=== PATIENT | male | born 1995 | race Caucasian/White ===

== ENCOUNTER 2018-04-19 16:44 | Observation (INO) | payer SELFPAY ==
[2018-04-19] MEDS ORDERED: Ondansetron 4 MG/2 ML SDV IVPUSH ONE (16:57)
[2018-04-19] MEDS ORDERED: Sodium Chloride 0.9% 1,000 ML IV ONE ×2 (16:57→17:14)
[2018-04-19] MEDS ORDERED: Sodium Chloride 0.9% 10 ML Syringe FLUSH PRN (17:01)
[2018-04-19] MEDS ORDERED: Sodium Chloride 0.9% 2.5 ML Syringe FLUSH PRN (17:01)
[2018-04-19] MEDS ORDERED: Prochlorperazine 10 MG/2 ML SDV IVPUSH ONE (17:13)
[2018-04-19] MEDS ORDERED: LORazepam 2 MG/ML SDV IVPUSH ONE (17:22)
--- NOTE | 2018-04-19 17:27 | EDM.PDOC ---
ED HPI GENERAL MEDICAL PROBLEM - General Chief Complaint: General Stated Complaint: VOMITING/STOMACH PAIN Time Seen by Provider: 04/19/18 17:10 Source of Information: Reports: Patient History Limitations: Reports: No Limitations - History of Present Illness INITIAL COMMENTS - FREE TEXT/NARRATIVE: HISTORY AND PHYSICAL: []22-year-old male presents after vomiting for the last 2 hours spent out working in the heat today History of Present Illness: []Patient comes in vomiting complaint of abdominal pain. He states that the pain as sharp and all over. He is unable to pinpoint one specific area which hurts the most. He states that he was at work today, forgot to eat and pack a lunch and did not drink much at work all day. He states that he thinks he got overheated which is what started vomiting. He has had too numerous of episodes of vomiting in order to keep track of how many times he vomited. He is unable to keep any fluids down at this time. He rates his pain a 10 out of 10. He also states he feels like he is cold and shivery. He states that he did have a few alcoholic beverages last night, but was not able to tell me how many drinks. He denies diarrhea, constipation, blood in the stool, blood in his vomit. He states that the only other time that he has had vomiting like this was when he had kidney stones about a year ago. Does admit to smoking weed in the past but does not smoke it on a regular basis He denies shortness of breath, cough, dyspnea, syncope chest pressure or pain. Review of Systems: As per history of present illness and below otherwise all systems reviewed and negative. Past medical history: As per history of present illness and as reviewed below otherwise noncontributory. Surgical history: As per history of present illness and as reviewed below otherwise noncontributory. Social history: No reported history of drug or alcohol abuse. Family history: As per history of present illness and as reviewed below otherwise noncontributory. Physical exam: Alert and oriented thin appearing male looking quite miserable, pale, vomiting numerous that is loud and retching quality. HEENT: Atraumatic, normocehpalic, pupils reactive, negative for conjunctival pallor or scleral icterus, mucous membranes moist, throat clear, neck supple, nontender, trachea midline. Lungs: Clear to auscultation, breath sounds equal bilaterally, chest non tender. Heart: S1S2, regular, negative for clicks, rubs, or JVD. Abdomen: Moderate to severe pain with light palpation and guarding. Soft, nondistended. Negative for masses or hepatossplenmegaly. Negative for costovertebral tenderness. Pelvis: Stable nontender. Genitourinary: Deferred. Rectal: Deferred Extremities: Atraumatic, negative for cords or calf pain. Neurovascular unremarkable. Neuro: Awake, alert, oriented. Cranial nerves II through XII unremarkable. Cerebellum unremarkable. Motor and sensory unremarkable throughout. Exam nonfocal. Have discussed with this patient to his CT scan negative for acute findings in his abdomen or pelvis is urine is positive for THC stressed the concerns with THC and cyclic vomiting. He has hypokalemia with potassium level II.8. Have recommended he stay for observation and rehydration Discussed report with the patient that his abdominal and pelvis CT scan was showing no Discussed he has low potassium is low Discussed case with Dr. Castaneda who has accepted this patient for referral to observation Diagnostics: []cbc, cmp, ekg, chest xray, abd xray h. pylori, cpk, UA , Urine drug screen Therapeutics: []IV fluids zofran, compazine Reglan Potassium chloride Impression: []Dehydration Hypokalemia Abdominal pain Cyclic vomiting Plan: []Per for observation Definitive disposition and diagnosis as appropriate pending reevaluation and review of above. Onset: Today, Sudden Duration: Hour(s): Location: Reports: Abdomen Quality: Reports: Throbbing Severity: Moderate Improves with: Reports: None Worsens with: Reports: None Associated Symptoms: Reports: Nausea/Vomiting abdominal pain Pain Score (Numeric/FACES): 10 - Related Data Allergies Allergy/AdvReac Type Severity Reaction Status Date / Time No Known Allergies Allergy Verified 04/19/18 17:02 Home Meds: Home Meds . [No Known Home Meds] 04/19/18 [History] Past Medical History Genitourinary History: Reports: Renal Calculus Social & Family History - Tobacco Use Smoking Status *Q: Former Smoker Years of Tobacco use: 4 Packs/Tins Daily: 0.5 Used Tobacco, but Quit: Yes Month/Year Tobacco Last Used: 2 months ago - Recreational Drug Use Recreational Drug Use: No ED ROS GENERAL - Review of Systems Review Of Systems: ROS reveals no pertinent complaints other than HPI. ED EXAM, GENERAL - Physical Exam Exam: See Below (see dictation) EKG INTERPRETATION EKG Date: 04/19/18 Rhythm: NSR Comparison: NA - No Prior EKG Course - Vital Signs Last Recorded V/S: Last Vital Signs Temp 35.8 C 04/19/18 17:03 Pulse 87 04/19/18 18:23 Resp 22 H 04/19/18 18:23 BP 123/83 04/19/18 18:23 Pulse Ox 98 04/19/18 18:23 - Orders/Labs/Meds Orders: Active Orders 24 hr Category Date Time Status Patient Status [ADT] Stat ADT 04/19/18 19:42 Ordered EKG Documentation Completion [RC] STAT Care 04/19/18 17:00 Active Abdomen Pelvis w Cont [CT] Stat Exams 04/19/18 17:31 Taken CULTURE URINE [RM] Stat Lab 04/19/18 18:50 Ordered DRUG SCREEN, URINE [URCHEM] Stat Lab 04/19/18 18:50 Ordered UA W/MICROSCOPIC [URIN] Stat Lab 04/19/18 18:50 Ordered NS + KCl 20mEq/L [Normal Saline with 20 mEq KCl] 1,000 Med 04/19/18 17:45 Active ml IV ASDIRECTED Sodium Chloride 0.9% [Saline Flush] Med 04/19/18 17:01 Active 10 ml FLUSH ASDIRECTED PRN Sodium Chloride 0.9% [Saline Flush] Med 04/19/18 17:01 Active 2.5 ml FLUSH ASDIRECTED PRN Saline Lock Insert [OM.PC] Stat Oth 04/19/18 17:00 Ordered Medication Orders Potassium Chloride/Sodium Chloride (Normal Saline With 20 Meq Kcl) 1,000 mls @ 150 mls/hr IV ASDIRECTED SHAWNA Last Admin: 04/19/18 17:49 Dose: 150 mls/hr Sodium Chloride (Saline Flush) 10 ml FLUSH ASDIRECTED PRN PRN Reason: Keep Vein Open Last Admin: 04/19/18 17:03 Dose: 10 ml Sodium Chloride (Saline Flush) 2.5 ml FLUSH ASDIRECTED PRN PRN Reason: Keep Vein Open Last Admin: 04/19/18 17:03 Dose: 2.5 ml Labs: Laboratory Tests 04/19/18 04/19/18 04/19/18 Range/Units 16:15 16:15 16:15 WBC 16.73 H (4.0-11.0) K/uL RBC 5.21 (4.50-5.90) M/uL Hgb 15.7 (13.0-17.0) g/dL Hct 44.3 (38.0-50.0) % MCV 85.0 (80.0-98.0) fL MCH 30.1 (27.0-32.0) pg MCHC 35.4 (31.0-37.0) g/dL RDW Std Deviation 39.7 (28.0-62.0) fl RDW Coeff of Eric 13 (11.0-15.0) % Plt Count 326 (150-400) K/uL MPV 11.60 (7.40-12.00) fL Neut % (Auto) 69.1 (48.0-80.0) % Lymph % (Auto) 21.4 (16.0-40.0) % [place] % (Auto) 9.0 (0.0-15.0) % Eos % (Auto) 0.1 (0.0-7.0) % Baso % (Auto) 0.4 (0.0-1.5) % Neut # (Auto) 11.6 H (1.4-5.7) K/uL Lymph # (Auto) 3.6 H (0.6-2.4) K/uL [place]ner # (Auto) 1.5 H (0.0-0.8) K/uL Eos # (Auto) 0.0 (0.0-0.7) K/uL Baso # (Auto) 0.1 (0.0-0.1) K/uL Nucleated RBC % 0.0 /100WBC Nucleated RBCs # 0 K/uL Sodium 140 (136-148) mmol/L Potassium 2.8 L (3.5-5.1) mmol/L Chloride 101 (98-107) mmol/L Carbon Dioxide 25.8 (21.0-32.0) mmol/L BUN 18 (7.0-18.0) mg/dL Creatinine 1.2 (0.8-1.3) mg/dL Est Cr Clr Drug Dosing 103.53 mL/min Estimated GFR (MDRD) > 60.0 ml/min Glucose 111 H (74-106) mg/dL Calcium 10.1 (8.5-10.1) mg/dL Total Bilirubin 0.9 (0.2-1.0) mg/dL AST 26 (15-37) IU/L ALT 30 (14-63) IU/L Alkaline Phosphatase 104 (46-116) U/L Creatine Kinase (26-308) U/L Total Protein 9.1 H (6.4-8.2) g/dL Albumin 5.1 H (3.4-5.0) g/dL Globulin 4.0 H (2.0-3.5) g/dL Albumin/Globulin Ratio 1.3 (1.3-2.8) Amylase 48 (25-115) U/L Urine Color Urine Appearance Urine pH (5.0-8.0) Ur Specific [place] (1.001-1.035) Urine Protein (NEGATIVE) mg/dL Urine Glucose (UA) (NEGATIVE) mg/dL Urine Ketones (NEGATIVE) mg/dL Urine Occult Blood (NEGATIVE) Urine Nitrite (NEGATIVE) Urine Bilirubin (NEGATIVE) Urine Urobilinogen (<2.0) EU/dL Ur Leukocyte Esterase (NEGATIVE) Urine RBC (0-2/HPF) Urine WBC (0-5/HPF) Ur Epithelial Cells (NONE-FEW) Calcium Oxalate Crystal (NEGATIVE) Urine Bacteria (NEGATIVE) Urine Mucus (NONE-MOD) Urine Opiates Screen (NEGATIVE) Ur Oxycodone Screen (NEGATIVE) Urine Methadone Screen (NEGATIVE) Ur Barbiturates Screen (NEGATIVE) Ur Phencyclidine Scrn (NEGATIVE) Ur Amphetamine Screen (NEGATIVE) U Methamphetamines Scrn (NEGATIVE) U Benzodiazepines Scrn (NEGATIVE) U Cocaine Metab Screen (NEGATIVE) U Marijuana (THC) Screen (NEGATIVE) H. pylori IgG Antibody NEGATIVE (NEG) 04/19/18 04/19/18 04/19/18 Range/Units 17:10 18:50 18:50 WBC (4.0-11.0) K/uL RBC (4.50-5.90) M/uL Hgb (13.0-17.0) g/dL Hct (38.0-50.0) % MCV (80.0-98.0) fL MCH (27.0-32.0) pg MCHC (31.0-37.0) g/dL RDW Std Deviation (28.0-62.0) fl RDW Coeff of Eric (11.0-15.0) % Plt Count (150-400) K/uL MPV (7.40-12.00) fL Neut % (Auto) (48.0-80.0) % Lymph % (Auto) (16.0-40.0) % [place] % (Auto) (0.0-15.0) % Eos % (Auto) (0.0-7.0) % Baso % (Auto) (0.0-1.5) % Neut # (Auto) (1.4-5.7) K/uL Lymph # (Auto) (0.6-2.4) K/uL [place] # (Auto) (0.0-0.8) K/uL Eos # (Auto) (0.0-0.7) K/uL Baso # (Auto) (0.0-0.1) K/uL Nucleated RBC % /100WBC Nucleated RBCs # K/uL Sodium (136-148) mmol/L Potassium (3.5-5.1) mmol/L Chloride (98-107) mmol/L Carbon Dioxide (21.0-32.0) mmol/L BUN (7.0-18.0) mg/dL Creatinine (0.8-1.3) mg/dL Est Cr Clr Drug Dosing mL/min Estimated GFR (MDRD) ml/min Glucose (74-106) mg/dL Calcium (8.5-10.1) mg/dL Total Bilirubin (0.2-1.0) mg/dL AST (15-37) IU/L ALT (14-63) IU/L Alkaline Phosphatase (46-116) U/L Creatine Kinase 272 (26-308) U/L Total Protein (6.4-8.2) g/dL Albumin (3.4-5.0) g/dL Globulin (2.0-3.5) g/dL Albumin/Globulin Ratio (1.3-2.8) Amylase (25-115) U/L Urine Color DARK YELLOW Urine Appearance CLEAR Urine pH 5.5 (5.0-8.0) Ur Specific [place] 1.025 (1.001-1.035) Urine Protein NEGATIVE (NEGATIVE) mg/dL Urine Glucose (UA) NEGATIVE (NEGATIVE) mg/dL Urine Ketones 15 H (NEGATIVE) mg/dL Urine Occult Blood MODERATE (NEGATIVE) Urine Nitrite NEGATIVE (NEGATIVE) Urine Bilirubin NEGATIVE (NEGATIVE) Urine Urobilinogen 0.2 (<2.0) EU/dL Ur Leukocyte Esterase NEGATIVE (NEGATIVE) Urine RBC 0-2 (0-2/HPF) Urine WBC 1-3 (0-5/HPF) Ur Epithelial Cells RARE (NONE-FEW) Calcium Oxalate Crystal FEW (NEGATIVE) Urine Bacteria FEW (NEGATIVE) Urine Mucus MODERATE (NONE-MOD) Urine Opiates Screen POSITIVE (NEGATIVE) Ur Oxycodone Screen NEGATIVE (NEGATIVE) Urine Methadone Screen NEGATIVE (NEGATIVE) Ur Barbiturates Screen NEGATIVE (NEGATIVE) Ur Phencyclidine Scrn NEGATIVE (NEGATIVE) Ur Amphetamine Screen NEGATIVE (NEGATIVE) U Methamphetamines Scrn NEGATIVE (NEGATIVE) U Benzodiazepines Scrn NEGATIVE (NEGATIVE) U Cocaine Metab Screen NEGATIVE (NEGATIVE) U Marijuana (THC) Screen POSITIVE (NEGATIVE) H. pylori IgG Antibody (NEG) Meds: Medications Generic Name Dose Route Start Last Admin Trade Name Freq PRN Reason Stop Dose Admin Potassium Chloride/Sodium Chloride 1,000 mls @ 150 mls/hr 04/19/18 17:45 17:49 Normal Saline With 20 Meq Kcl IV 150 mls/hr ASDIRECTED SHAWNA Administration Sodium Chloride 10 ml 04/19/18 17:01 04/19/18 17:03 Saline Flush FLUSH 10 ml ASDIRECTED PRN Administration Keep Vein Open Sodium Chloride 2.5 ml 04/19/18 17:01 04/19/18 17:03 Saline Flush FLUSH 2.5 ml ASDIRECTED PRN Administration Keep Vein Open Discontinued Medications Generic Name Dose Route Start Last Admin Trade Name Freq PRN Reason Stop Dose Admin Sodium Chloride 1,000 mls @ 999 mls/hr 04/19/18 16:57 04/19/18 17:03 Normal Saline IV 04/19/18 17:57 999 mls/hr STAT ONE Administration Sodium Chloride 1,000 mls @ 999 mls/hr 04/19/18 17:14 04/19/18 17:35 Normal Saline IV 04/19/18 18:14 999 mls/hr STAT ONE Administration Iopamidol 91 ml 04/19/18 18:26 04/19/18 18:28 Isovue Multipack-370 (76%) IVPUSH 04/19/18 18:27 91 ml ONETIME ONE Administration Ketorolac Tromethamine 30 mg 04/19/18 17:30 04/19/18 17:34 Toradol IVPUSH 04/19/18 17:31 30 mg ONETIME ONE Administration Lorazepam 1 mg 04/19/18 17:22 04/19/18 17:28 Ativan IVPUSH 04/19/18 17:23 1 mg ONETIME ONE Administration Metoclopramide HCl 10 mg 04/19/18 19:41 Reglan IVPUSH 04/19/18 19:42 ONETIME ONE Morphine Sulfate 2 mg 04/19/18 17:52 04/19/18 17:56 Morphine IVPUSH 04/19/18 17:53 2 mg ONETIME ONE Administration Morphine Sulfate 2 mg 04/19/18 18:50 04/19/18 19:09 Morphine IVPUSH 04/19/18 18:51 2 mg ONETIME ONE Administration Ondansetron HCl 4 mg 04/19/18 16:57 04/19/18 17:02 Zofran IVPUSH 04/19/18 16:58 4 mg ONETIME ONE Administration Potassium Chloride 40 meq 04/19/18 19:40 Klor-Con M20 PO 04/19/18 19:41 ONETIME ONE Prochlorperazine Edisylate 10 mg 04/19/18 17:13 04/19/18 17:16 Compazine IVPUSH 04/19/18 17:14 10 mg ONETIME ONE Administration Departure - Departure Time of Disposition: 19:48 Disposition: Refer to Observation Condition: Good Clinical Impression: Hypokalemia, Dehydration Vomiting Qualifiers: Vomiting Intractability: non-intractable Nausea presence: with nausea - Discharge Information *PRESCRIPTION DRUG MONITORING PROGRAM REVIEWED*: Not Applicable *COPY OF PRESCRIPTION DRUG MONITORING REPORT IN PATIENT HEBERT: Not Applicable Referrals: PCP,None [Primary Care Provider] - Forms: ED Department Discharge - My Orders Last 24 Hours: My Active Orders 04/19/18 17:00 EKG Documentation Completion [RC] STAT Saline Lock Insert [OM.PC] Stat 04/19/18 17:01 Sodium Chloride 0.9% [Saline Flush] 10 ml FLUSH ASDIRECTED PRN Sodium Chloride 0.9% [Saline Flush] 2.5 ml FLUSH ASDIRECTED PRN 04/19/18 17:31 Abdomen Pelvis w Cont [CT] Stat 04/19/18 17:45 NS + KCl 20mEq/L [Normal Saline with 20 mEq KCl] 1,000 ml IV ASDIRECTED 04/19/18 18:50 CULTURE URINE [RM] Stat DRUG SCREEN, URINE [URCHEM] Stat UA W/MICROSCOPIC [URIN] Stat 04/19/18 19:42 Patient Status [ADT] Stat - Assessment/Plan Last 24 Hours: My Active Orders 04/19/18 17:00 EKG Documentation Completion [RC] STAT Saline Lock Insert [OM.PC] Stat 04/19/18 17:01 Sodium Chloride 0.9% [Saline Flush] 10 ml FLUSH ASDIRECTED PRN Sodium Chloride 0.9% [Saline Flush] 2.5 ml FLUSH ASDIRECTED PRN 04/19/18 17:31 Abdomen Pelvis w Cont [CT] Stat 04/19/18 17:45 NS + KCl 20mEq/L [Normal Saline with 20 mEq KCl] 1,000 ml IV ASDIRECTED 04/19/18 18:50 CULTURE URINE [RM] Stat DRUG SCREEN, URINE [URCHEM] Stat UA W/MICROSCOPIC [URIN] Stat 04/19/18 19:42 Patient Status [ADT] Stat
[2018-04-19] MEDS ORDERED: Ketorolac 30 MG/ML SDV IVPUSH ONE (17:30)
[2018-04-19 17:37] LABS: CHLORIDE,CL 101 mmol/L (98-107); SODIUM,NA 140 mmol/L (136-148)
[2018-04-19] MEDS ORDERED: NS + KCl 20mEq/L 1,000 ML IV SCH (17:45)
[2018-04-19] MEDS ORDERED: Morphine 2 MG/ML Syringe IVPUSH ONE ×2 (17:52→18:50)
[2018-04-19] MEDS ORDERED: Iopamidol 755 MG/ML 200 ML Multipack Bottle IVPUSH ONE (18:26)
[2018-04-19] MEDS ORDERED: Potassium Chloride 20 MEQ Tab.ER PO ONE (19:40)
[2018-04-19] MEDS ORDERED: Metoclopramide 10 MG/2 ML SDV IVPUSH ONE (19:41)
[2018-04-19] MEDS ORDERED: Sodium Chloride 0.9% with KCl 1,000 ML ONE (20:08)
[2018-04-19] MEDS ORDERED: Metoclopramide 10 MG/2 ML SDV IVPUSH PRN (21:46)
[2018-04-19] MEDS ORDERED: Ondansetron 4 MG/2 ML SDV IVPUSH PRN (21:46)
[2018-04-19] MEDS ORDERED: Sodium Chloride 0.9% 1,000 ML IV SCH (22:00)
[2018-04-19] MEDS: Morphine 2 MG/ML Syringe IVPUSH PRN (22:00)
[2018-04-20] MEDS: Morphine 2 MG/ML Syringe IVPUSH PRN ×2 (01:15→04:49)
[2018-04-20 06:12] LABS: CHLORIDE,CL 104 mmol/L (98-107); SODIUM,NA 141 mmol/L (136-148)
--- NOTE | 2018-04-20 07:50 | PCM.HP ---
H&P History of Present Illness - General Date of Service: 04/20/18 Admit Problem/Dx: Admission Diagnosis/Problem Admission Diagnosis/Problem Hypokalemia Source of Information: Patient History Limitations: Reports: No Limitations abdominal pain Pain Score (Numeric/FACES): 7 - Related Data Allergies/Adverse Reactions: Allergies Allergy/AdvReac Type Severity Reaction Status Date / Time No Known Allergies Allergy Verified 04/19/18 17:02 Home Medications: Home Meds . [No Known Home Meds] 04/19/18 [History] Past Medical History Genitourinary History: Reports: Renal Calculus Social & Family History - Tobacco Use Smoking Status *Q: Former Smoker Years of Tobacco use: 4 Packs/Tins Daily: 0.5 Used Tobacco, but Quit: Yes Month/Year Tobacco Last Used: 2 months ago - Recreational Drug Use Recreational Drug Use: Yes Drug Use in Last 12 Months: Yes Recreational Drug Type: Reports: Marijuana/Hashish Recreational Drug Use Frequency: Socially Exam - Vital Signs Vital Signs: Last Vital Signs Temp 99.2 F 04/20/18 04:00 Pulse 98 04/20/18 04:00 Resp 18 04/20/18 04:00 BP 112/58 L 04/20/18 04:00 Pulse Ox 97 04/20/18 04:00 Weight: 69.173 kg - Patient Data Lab Results Last 24 hrs: Laboratory Results - last 24 hr 04/19/18 04/19/18 04/19/18 Range/Units 16:15 16:15 16:15 WBC 16.73 H (4.0-11.0) K/uL RBC 5.21 (4.50-5.90) M/uL Hgb 15.7 (13.0-17.0) g/dL Hct 44.3 (38.0-50.0) % MCV 85.0 (80.0-98.0) fL MCH 30.1 (27.0-32.0) pg MCHC 35.4 (31.0-37.0) g/dL RDW Std Deviation 39.7 (28.0-62.0) fl RDW Coeff of Eric 13 (11.0-15.0) % Plt Count 326 (150-400) K/uL MPV 11.60 (7.40-12.00) fL Neut % (Auto) 69.1 (48.0-80.0) % Lymph % (Auto) 21.4 (16.0-40.0) % [place] % (Auto) 9.0 (0.0-15.0) % Eos % (Auto) 0.1 (0.0-7.0) % Baso % (Auto) 0.4 (0.0-1.5) % Neut # (Auto) 11.6 H (1.4-5.7) K/uL Lymph # (Auto) 3.6 H (0.6-2.4) K/uL [place] # (Auto) 1.5 H (0.0-0.8) K/uL Eos # (Auto) 0.0 (0.0-0.7) K/uL Baso # (Auto) 0.1 (0.0-0.1) K/uL Nucleated RBC % 0.0 /100WBC Nucleated RBCs # 0 K/uL Sodium 140 (136-148) mmol/L Potassium 2.8 L (3.5-5.1) mmol/L Chloride 101 (98-107) mmol/L Carbon Dioxide 25.8 (21.0-32.0) mmol/L BUN 18 (7.0-18.0) mg/dL Creatinine 1.2 (0.8-1.3) mg/dL Est Cr Clr Drug Dosing 103.53 mL/min Estimated GFR (MDRD) > 60.0 ml/min Glucose 111 H (74-106) mg/dL Calcium 10.1 (8.5-10.1) mg/dL Total Bilirubin 0.9 (0.2-1.0) mg/dL AST 26 (15-37) IU/L ALT 30 (14-63) IU/L Alkaline Phosphatase 104 (46-116) U/L Creatine Kinase (26-308) U/L Total Protein 9.1 H (6.4-8.2) g/dL Albumin 5.1 H (3.4-5.0) g/dL Globulin 4.0 H (2.0-3.5) g/dL Albumin/Globulin Ratio 1.3 (1.3-2.8) Amylase 48 (25-115) U/L Urine Color Urine Appearance Urine pH (5.0-8.0) Ur Specific [place] (1.001-1.035) Urine Protein (NEGATIVE) mg/dL Urine Glucose (UA) (NEGATIVE) mg/dL Urine Ketones (NEGATIVE) mg/dL Urine Occult Blood (NEGATIVE) Urine Nitrite (NEGATIVE) Urine Bilirubin (NEGATIVE) Urine Urobilinogen (<2.0) EU/dL Ur Leukocyte Esterase (NEGATIVE) Urine RBC (0-2/HPF) Urine WBC (0-5/HPF) Ur Epithelial Cells (NONE-FEW) Calcium Oxalate Crystal (NEGATIVE) Urine Bacteria (NEGATIVE) Urine Mucus (NONE-MOD) Urine Opiates Screen (NEGATIVE) Ur Oxycodone Screen (NEGATIVE) Urine Methadone Screen (NEGATIVE) Ur Barbiturates Screen (NEGATIVE) Ur Phencyclidine Scrn (NEGATIVE) Ur Amphetamine Screen (NEGATIVE) U Methamphetamines Scrn (NEGATIVE) U Benzodiazepines Scrn (NEGATIVE) U Cocaine Metab Screen (NEGATIVE) U Marijuana (THC) Screen (NEGATIVE) H. pylori IgG Antibody NEGATIVE (NEG) 04/19/18 04/19/18 04/19/18 Range/Units 17:10 18:50 18:50 WBC (4.0-11.0) K/uL RBC (4.50-5.90) M/uL Hgb (13.0-17.0) g/dL Hct (38.0-50.0) % MCV (80.0-98.0) fL MCH (27.0-32.0) pg MCHC (31.0-37.0) g/dL RDW Std Deviation (28.0-62.0) fl RDW Coeff of Eric (11.0-15.0) % Plt Count (150-400) K/uL MPV (7.40-12.00) fL Neut % (Auto) (48.0-80.0) % Lymph % (Auto) (16.0-40.0) % [place] % (Auto) (0.0-15.0) % Eos % (Auto) (0.0-7.0) % Baso % (Auto) (0.0-1.5) % Neut # (Auto) (1.4-5.7) K/uL Lymph # (Auto) (0.6-2.4) K/uL [place] # (Auto) (0.0-0.8) K/uL Eos # (Auto) (0.0-0.7) K/uL Baso # (Auto) (0.0-0.1) K/uL Nucleated RBC % /100WBC Nucleated RBCs # K/uL Sodium (136-148) mmol/L Potassium (3.5-5.1) mmol/L Chloride (98-107) mmol/L Carbon Dioxide (21.0-32.0) mmol/L BUN (7.0-18.0) mg/dL Creatinine (0.8-1.3) mg/dL Est Cr Clr Drug Dosing mL/min Estimated GFR (MDRD) ml/min Glucose (74-106) mg/dL Calcium (8.5-10.1) mg/dL Total Bilirubin (0.2-1.0) mg/dL AST (15-37) IU/L ALT (14-63) IU/L Alkaline Phosphatase (46-116) U/L Creatine Kinase 272 (26-308) U/L Total Protein (6.4-8.2) g/dL Albumin (3.4-5.0) g/dL Globulin (2.0-3.5) g/dL Albumin/Globulin Ratio (1.3-2.8) Amylase (25-115) U/L Urine Color DARK YELLOW Urine Appearance CLEAR Urine pH 5.5 (5.0-8.0) Ur Specific [place] 1.025 (1.001-1.035) Urine Protein NEGATIVE (NEGATIVE) mg/dL Urine Glucose (UA) NEGATIVE (NEGATIVE) mg/dL Urine Ketones 15 H (NEGATIVE) mg/dL Urine Occult Blood MODERATE (NEGATIVE) Urine Nitrite NEGATIVE (NEGATIVE) Urine Bilirubin NEGATIVE (NEGATIVE) Urine Urobilinogen 0.2 (<2.0) EU/dL Ur Leukocyte Esterase NEGATIVE (NEGATIVE) Urine RBC 0-2 (0-2/HPF) Urine WBC 1-3 (0-5/HPF) Ur Epithelial Cells RARE (NONE-FEW) Calcium Oxalate Crystal FEW (NEGATIVE) Urine Bacteria FEW (NEGATIVE) Urine Mucus MODERATE (NONE-MOD) Urine Opiates Screen POSITIVE (NEGATIVE) Ur Oxycodone Screen NEGATIVE (NEGATIVE) Urine Methadone Screen NEGATIVE (NEGATIVE) Ur Barbiturates Screen NEGATIVE (NEGATIVE) Ur Phencyclidine Scrn NEGATIVE (NEGATIVE) Ur Amphetamine Screen NEGATIVE (NEGATIVE) U Methamphetamines Scrn NEGATIVE (NEGATIVE) U Benzodiazepines Scrn NEGATIVE (NEGATIVE) U Cocaine Metab Screen NEGATIVE (NEGATIVE) U Marijuana (THC) Screen POSITIVE (NEGATIVE) H. pylori IgG Antibody (NEG) 04/20/18 04/20/18 Range/Units 05:15 05:15 WBC 11.39 H (4.0-11.0) K/uL RBC 4.56 (4.50-5.90) M/uL Hgb 13.5 (13.0-17.0) g/dL Hct 39.2 (38.0-50.0) % MCV 86.0 (80.0-98.0) fL MCH 29.6 (27.0-32.0) pg MCHC 34.4 (31.0-37.0) g/dL RDW Std Deviation 41.2 (28.0-62.0) fl RDW Coeff of Eric 13 (11.0-15.0) % Plt Count 251 (150-400) K/uL MPV 11.50 (7.40-12.00) fL Neut % (Auto) 81.9 H (48.0-80.0) % Lymph % (Auto) 10.8 L (16.0-40.0) % [place] % (Auto) 7.2 (0.0-15.0) % Eos % (Auto) 0.0 (0.0-7.0) % Baso % (Auto) 0.1 (0.0-1.5) % Neut # (Auto) 9.3 H (1.4-5.7) K/uL Lymph # (Auto) 1.2 (0.6-2.4) K/uL [place] # (Auto) 0.8 (0.0-0.8) K/uL Eos # (Auto) 0.0 (0.0-0.7) K/uL Baso # (Auto) 0.0 (0.0-0.1) K/uL Nucleated RBC % 0.0 /100WBC Nucleated RBCs # 0 K/uL Sodium 141 (136-148) mmol/L Potassium 4.0 (3.5-5.1) mmol/L Chloride 104 (98-107) mmol/L Carbon Dioxide 24.5 (21.0-32.0) mmol/L BUN 13 (7.0-18.0) mg/dL Creatinine 0.8 (0.8-1.3) mg/dL Est Cr Clr Drug Dosing 139.31 mL/min Estimated GFR (MDRD) > 60.0 ml/min Glucose 110 H (74-106) mg/dL Calcium 9.2 (8.5-10.1) mg/dL Total Bilirubin (0.2-1.0) mg/dL AST (15-37) IU/L ALT (14-63) IU/L Alkaline Phosphatase (46-116) U/L Creatine Kinase (26-308) U/L Total Protein (6.4-8.2) g/dL Albumin (3.4-5.0) g/dL Globulin (2.0-3.5) g/dL Albumin/Globulin Ratio (1.3-2.8) Amylase (25-115) U/L Urine Color Urine Appearance Urine pH (5.0-8.0) Ur Specific [place] (1.001-1.035) Urine Protein (NEGATIVE) mg/dL Urine Glucose (UA) (NEGATIVE) mg/dL Urine Ketones (NEGATIVE) mg/dL Urine Occult Blood (NEGATIVE) Urine Nitrite (NEGATIVE) Urine Bilirubin (NEGATIVE) Urine Urobilinogen (<2.0) EU/dL Ur Leukocyte Esterase (NEGATIVE) Urine RBC (0-2/HPF) Urine WBC (0-5/HPF) Ur Epithelial Cells (NONE-FEW) Calcium Oxalate Crystal (NEGATIVE) Urine Bacteria (NEGATIVE) Urine Mucus (NONE-MOD) Urine Opiates Screen (NEGATIVE) Ur Oxycodone Screen (NEGATIVE) Urine Methadone Screen (NEGATIVE) Ur Barbiturates Screen (NEGATIVE) Ur Phencyclidine Scrn (NEGATIVE) Ur Amphetamine Screen (NEGATIVE) U Methamphetamines Scrn (NEGATIVE) U Benzodiazepines Scrn (NEGATIVE) U Cocaine Metab Screen (NEGATIVE) U Marijuana (THC) Screen (NEGATIVE) H. pylori IgG Antibody (NEG) Result Diagrams: 04/20/18 05:15 04/20/18 05:15 Orders Last 24hrs: Active Orders 24 hr Category Date Time Status Patient Status [ADT] Stat ADT 04/19/18 19:42 Active Telemetry Monitoring [Cardiac Monitoring] [RC] . Care 04/19/18 19:47 Active DIRECTED Telemetry Monitoring [Cardiac Monitoring] [RC] . Care 04/19/18 19:50 Active DIRECTED Nothing per Oral Now Diet [DIET] Diet 04/20/18 Breakfast Active Abdomen Pelvis w Cont [CT] Stat Exams 04/19/18 17:31 Taken CULTURE URINE [RM] Stat Lab 04/19/18 18:50 Ordered DRUG SCREEN, URINE [URCHEM] Stat Lab 04/19/18 18:50 Ordered UA W/MICROSCOPIC [URIN] Stat Lab 04/19/18 18:50 Ordered Metoclopramide [Reglan] Med 04/19/18 21:46 Active 10 mg IVPUSH Q6H PRN Morphine Med 04/19/18 21:43 Active 2 mg IVPUSH Q2H PRN NS + KCl 20mEq/L [Normal Saline with 20 mEq KCl] 1,000 Med 04/19/18 17:45 Active ml IV ASDIRECTED Ondansetron [Zofran] Med 04/19/18 21:46 Active 4 mg IVPUSH Q4H PRN Sodium Chloride 0.9% [Normal Saline] 1,000 ml Med 04/19/18 22:00 Active IV ASDIRECTED Sodium Chloride 0.9% [Saline Flush] Med 04/19/18 17:01 Active 10 ml FLUSH ASDIRECTED PRN Sodium Chloride 0.9% [Saline Flush] Med 04/19/18 17:01 Active 2.5 ml FLUSH ASDIRECTED PRN Saline Lock Insert [OM.PC] Stat Oth 04/19/18 17:00 Ordered Medication Orders Potassium Chloride/Sodium Chloride (Normal Saline With 20 Meq Kcl) 1,000 mls @ 150 mls/hr IV ASDIRECTED [facility] Last Admin: 04/19/18 17:49 Dose: 150 mls/hr Sodium Chloride (Normal Saline) 1,000 mls @ 150 mls/hr IV ASDIRECTED [facility] Last Admin: 04/20/18 03:24 Dose: 150 mls/hr Metoclopramide HCl (Reglan) 10 mg IVPUSH Q6H PRN PRN Reason: Nausea/Vomiting Morphine Sulfate (Morphine) 2 mg IVPUSH Q2H PRN PRN Reason: Pain Last Admin: 04/20/18 04:49 Dose: 2 mg Admin: 04/20/18 01:15 Dose: 2 mg Admin: 04/19/18 22:00 Dose: 2 mg Ondansetron HCl (Zofran) 4 mg IVPUSH Q4H PRN PRN Reason: Nausea/Vomiting Sodium Chloride (Saline Flush) 10 ml FLUSH ASDIRECTED PRN PRN Reason: Keep Vein Open Last Admin: 04/19/18 17:03 Dose: 10 ml Sodium Chloride (Saline Flush) 2.5 ml FLUSH ASDIRECTED PRN PRN Reason: Keep Vein Open Last Admin: 04/19/18 17:03 Dose: 2.5 ml
--- NOTE | 2018-04-20 08:37 | PCM.HP ---
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 Patient states that he did not eat anything and he only drank water. His vomiting was associated with nausea and abdominal pain. No blood in vomit. Denies diarrhea. In emergency room patient was found to be positive for marijuana on urine toxicology, and his potassium was 2.8.Patient lethargic in ER , no sick contacts . Onset of Symptoms: Reports: Sudden Symptom Onset Date: 04/19/18 Duration of Symptoms: Reports: Hour(s):, Getting Worse Location: Reports: Abdomen abdominal pain Pain Score (Numeric/FACES): 7 - Related Data Allergies/Adverse Reactions: Allergies Allergy/AdvReac Type Severity Reaction Status Date / Time No Known Allergies Allergy Verified 04/19/18 17:02 Home Medications: Home Meds . [No Known Home Meds] 04/19/18 [History] Past Medical History Genitourinary History: Reports: Renal Calculus Social & Family History - Tobacco Use Smoking Status *Q: Former Smoker Years of Tobacco use: 4 Packs/Tins Daily: 0.5 Used Tobacco, but Quit: Yes Month/Year Tobacco Last Used: 2 months ago - Recreational Drug Use Recreational Drug Use: Yes Drug Use in Last 12 Months: Yes Recreational Drug Type: Reports: Marijuana/Hashish Recreational Drug Use Frequency: Socially H&P Review of Systems - Review of Systems: Review Of Systems: See Below General: Reports: Malaise, Weakness HEENT: Reports: No Symptoms Pulmonary: Reports: No Symptoms Cardiovascular: Reports: No Symptoms Gastrointestinal: Reports: Abdominal Pain, Nausea, Vomiting Genitourinary: Reports: No Symptoms Musculoskeletal: Reports: No Symptoms Skin: Reports: No Symptoms Neurological: Reports: Other (drawsyness) Immunologic: Reports: No Symptoms Exam - Exam Exam: See Below - Vital Signs Vital Signs: Last Vital Signs Temp 99.2 F 04/20/18 04:00 Pulse 98 04/20/18 04:00 Resp 18 04/20/18 04:00 BP 112/58 L 07/18/18 04:00 Pulse Ox 97 04/20/18 04:00 Weight: 152 lb 8 oz - Exam General: Alert, Oriented, Lethargic HEENT: Conjunctiva Clear, Hearing Intact, Nares Patent, Pupils Equal, Pupils Reactive Neck: Supple, Trachea Midline, Full Range of Motion Lungs: Clear to Auscultation, Normal Respiratory Effort Cardiovascular: Regular Rate, Regular Rhythm, Normal S1, Normal S2 GI/Abdominal Exam: Normal Bowel Sounds, Soft, Tender. No: No Distention, No Abnormal Bruit, No Mass, Distended, Rebound, Abnormal Bowel Sounds, Hernia, Mass , Hepatomegaly, Splenomegaly Back Exam: Normal Inspection, Full Range of Motion - Patient Data Lab Results Last 24 hrs: Laboratory Results - last 24 hr 04/19/18 04/19/18 04/19/18 Range/Units 16:15 16:15 16:15 WBC 16.73 H (4.0-11.0) K/uL RBC 5.21 (4.50-5.90) M/uL Hgb 15.7 (13.0-17.0) g/dL Hct 44.3 (38.0-50.0) % MCV 85.0 (80.0-98.0) fL MCH 30.1 (27.0-32.0) pg MCHC 35.4 (31.0-37.0) g/dL RDW Std Deviation 39.7 (28.0-62.0) fl RDW Coeff of Eric 13 (11.0-15.0) % Plt Count 326 (150-400) K/uL MPV 11.60 (7.40-12.00) fL Neut % (Auto) 69.1 (48.0-80.0) % Lymph % (Auto) 21.4 (16.0-40.0) % [place] % (Auto) 9.0 (0.0-15.0) % Eos % (Auto) 0.1 (0.0-7.0) % Baso % (Auto) 0.4 (0.0-1.5) % Neut # (Auto) 11.6 H (1.4-5.7) K/uL Lymph # (Auto) 3.6 H (0.6-2.4) K/uL [place] # (Auto) 1.5 H (0.0-0.8) K/uL Eos # (Auto) 0.0 (0.0-0.7) K/uL Baso # (Auto) 0.1 (0.0-0.1) K/uL Nucleated RBC % 0.0 /100WBC Nucleated RBCs # 0 K/uL Sodium 140 (136-148) mmol/L Potassium 2.8 L (3.5-5.1) mmol/L Chloride 101 (98-107) mmol/L Carbon Dioxide 25.8 (21.0-32.0) mmol/L BUN 18 (7.0-18.0) mg/dL Creatinine 1.2 (0.8-1.3) mg/dL Est Cr Clr Drug Dosing 103.53 mL/min Estimated GFR (MDRD) > 60.0 ml/min Glucose 111 H (74-106) mg/dL Calcium 10.1 (8.5-10.1) mg/dL Total Bilirubin 0.9 (0.2-1.0) mg/dL AST 26 (15-37) IU/L ALT 30 (14-63) IU/L Alkaline Phosphatase 104 (46-116) U/L Creatine Kinase (26-308) U/L Total Protein 9.1 H (6.4-8.2) g/dL Albumin 5.1 H (3.4-5.0) g/dL Globulin 4.0 H (2.0-3.5) g/dL Albumin/Globulin Ratio 1.3 (1.3-2.8) Amylase 48 (25-115) U/L Urine Color Urine Appearance Urine pH (5.0-8.0) Ur Specific [place] (1.001-1.035) Urine Protein (NEGATIVE) mg/dL Urine Glucose (UA) (NEGATIVE) mg/dL Urine Ketones (NEGATIVE) mg/dL Urine Occult Blood (NEGATIVE) Urine Nitrite (NEGATIVE) Urine Bilirubin (NEGATIVE) Urine Urobilinogen (<2.0) EU/dL Ur Leukocyte Esterase (NEGATIVE) Urine RBC (0-2/HPF) Urine WBC (0-5/HPF) Ur Epithelial Cells (NONE-FEW) Calcium Oxalate Crystal (NEGATIVE) Urine Bacteria (NEGATIVE) Urine Mucus (NONE-MOD) Urine Opiates Screen (NEGATIVE) Ur Oxycodone Screen (NEGATIVE) Urine Methadone Screen (NEGATIVE) Ur Barbiturates Screen (NEGATIVE) Ur Phencyclidine Scrn (NEGATIVE) Ur Amphetamine Screen (NEGATIVE) U Methamphetamines Scrn (NEGATIVE) U Benzodiazepines Scrn (NEGATIVE) U Cocaine Metab Screen (NEGATIVE) U Marijuana (THC) Screen (NEGATIVE) H. pylori IgG Antibody NEGATIVE (NEG) 04/19/18 04/19/18 04/19/18 Range/Units 17:10 18:50 18:50 WBC (4.0-11.0) K/uL RBC (4.50-5.90) M/uL Hgb (13.0-17.0) g/dL Hct (38.0-50.0) % MCV (80.0-98.0) fL MCH (27.0-32.0) pg MCHC (31.0-37.0) g/dL RDW Std Deviation (28.0-62.0) fl RDW Coeff of Eric (11.0-15.0) % Plt Count (150-400) K/uL MPV (7.40-12.00) fL Neut % (Auto) (48.0-80.0) % Lymph % (Auto) (16.0-40.0) % [place] % (Auto) (0.0-15.0) % Eos % (Auto) (0.0-7.0) % Baso % (Auto) (0.0-1.5) % Neut # (Auto) (1.4-5.7) K/uL Lymph # (Auto) (0.6-2.4) K/uL [place] # (Auto) (0.0-0.8) K/uL Eos # (Auto) (0.0-0.7) K/uL Baso # (Auto) (0.0-0.1) K/uL Nucleated RBC % /100WBC Nucleated RBCs # K/uL Sodium (136-148) mmol/L Potassium (3.5-5.1) mmol/L Chloride (98-107) mmol/L Carbon Dioxide (21.0-32.0) mmol/L BUN (7.0-18.0) mg/dL Creatinine (0.8-1.3) mg/dL Est Cr Clr Drug Dosing mL/min Estimated GFR (MDRD) ml/min Glucose (74-106) mg/dL Calcium (8.5-10.1) mg/dL Total Bilirubin (0.2-1.0) mg/dL AST (15-37) IU/L ALT (14-63) IU/L Alkaline Phosphatase (46-116) U/L Creatine Kinase 272 (26-308) U/L Total Protein (6.4-8.2) g/dL Albumin (3.4-5.0) g/dL Globulin (2.0-3.5) g/dL Albumin/Globulin Ratio (1.3-2.8) Amylase (25-115) U/L Urine Color DARK YELLOW Urine Appearance CLEAR Urine pH 5.5 (5.0-8.0) Ur Specific [place] 1.025 (1.001-1.035) Urine Protein NEGATIVE (NEGATIVE) mg/dL Urine Glucose (UA) NEGATIVE (NEGATIVE) mg/dL Urine Ketones 15 H (NEGATIVE) mg/dL Urine Occult Blood MODERATE (NEGATIVE) Urine Nitrite NEGATIVE (NEGATIVE) Urine Bilirubin NEGATIVE (NEGATIVE) Urine Urobilinogen 0.2 (<2.0) EU/dL Ur Leukocyte Esterase NEGATIVE (NEGATIVE) Urine RBC 0-2 (0-2/HPF) Urine WBC 1-3 (0-5/HPF) Ur Epithelial Cells RARE (NONE-FEW) Calcium Oxalate Crystal FEW (NEGATIVE) Urine Bacteria FEW (NEGATIVE) Urine Mucus MODERATE (NONE-MOD) Urine Opiates Screen POSITIVE (NEGATIVE) Ur Oxycodone Screen NEGATIVE (NEGATIVE) Urine Methadone Screen NEGATIVE (NEGATIVE) Ur Barbiturates Screen NEGATIVE (NEGATIVE) Ur Phencyclidine Scrn NEGATIVE (NEGATIVE) Ur Amphetamine Screen NEGATIVE (NEGATIVE) U Methamphetamines Scrn NEGATIVE (NEGATIVE) U Benzodiazepines Scrn NEGATIVE (NEGATIVE) U Cocaine Metab Screen NEGATIVE (NEGATIVE) U Marijuana (THC) Screen POSITIVE (NEGATIVE) H. pylori IgG Antibody (NEG) 04/20/18 04/20/18 Range/Units 05:15 05:15 WBC 11.39 H (4.0-11.0) K/uL RBC 4.56 (4.50-5.90) M/uL Hgb 13.5 (13.0-17.0) g/dL Hct 39.2 (38.0-50.0) % MCV 86.0 (80.0-98.0) fL MCH 29.6 (27.0-32.0) pg MCHC 34.4 (31.0-37.0) g/dL RDW Std Deviation 41.2 (28.0-62.0) fl RDW Coeff of Eric 13 (11.0-15.0) % Plt Count 251 (150-400) K/uL MPV 11.50 (7.40-12.00) fL Neut % (Auto) 81.9 H (48.0-80.0) % Lymph % (Auto) 10.8 L (16.0-40.0) % [place] % (Auto) 7.2 (0.0-15.0) % Eos % (Auto) 0.0 (0.0-7.0) % Baso % (Auto) 0.1 (0.0-1.5) % Neut # (Auto) 9.3 H (1.4-5.7) K/uL Lymph # (Auto) 1.2 (0.6-2.4) K/uL [place] # (Auto) 0.8 (0.0-0.8) K/uL Eos # (Auto) 0.0 (0.0-0.7) K/uL Baso # (Auto) 0.0 (0.0-0.1) K/uL Nucleated RBC % 0.0 /100WBC Nucleated RBCs # 0 K/uL Sodium 141 (136-148) mmol/L Potassium 4.0 (3.5-5.1) mmol/L Chloride 104 (98-107) mmol/L Carbon Dioxide 24.5 (21.0-32.0) mmol/L BUN 13 (7.0-18.0) mg/dL Creatinine 0.8 (0.8-1.3) mg/dL Est Cr Clr Drug Dosing 139.31 mL/min Estimated GFR (MDRD) > 60.0 ml/min Glucose 110 H (74-106) mg/dL Calcium 9.2 (8.5-10.1) mg/dL Total Bilirubin (0.2-1.0) mg/dL AST (15-37) IU/L ALT (14-63) IU/L Alkaline Phosphatase (46-116) U/L Creatine Kinase (26-308) U/L Total Protein (6.4-8.2) g/dL Albumin (3.4-5.0) g/dL Globulin (2.0-3.5) g/dL Albumin/Globulin Ratio (1.3-2.8) Amylase (25-115) U/L Urine Color Urine Appearance Urine pH (5.0-8.0) Ur Specific [place] (1.001-1.035) Urine Protein (NEGATIVE) mg/dL Urine Glucose (UA) (NEGATIVE) mg/dL Urine Ketones (NEGATIVE) mg/dL Urine Occult Blood (NEGATIVE) Urine Nitrite (NEGATIVE) Urine Bilirubin (NEGATIVE) Urine Urobilinogen (<2.0) EU/dL Ur Leukocyte Esterase (NEGATIVE) Urine RBC (0-2/HPF) Urine WBC (0-5/HPF) Ur Epithelial Cells (NONE-FEW) Calcium Oxalate Crystal (NEGATIVE) Urine Bacteria (NEGATIVE) Urine Mucus (NONE-MOD) Urine Opiates Screen (NEGATIVE) Ur Oxycodone Screen (NEGATIVE) Urine Methadone Screen (NEGATIVE) Ur Barbiturates Screen (NEGATIVE) Ur Phencyclidine Scrn (NEGATIVE) Ur Amphetamine Screen (NEGATIVE) U Methamphetamines Scrn (NEGATIVE) U Benzodiazepines Scrn (NEGATIVE) U Cocaine Metab Screen (NEGATIVE) U Marijuana (THC) Screen (NEGATIVE) H. pylori IgG Antibody (NEG) Result Diagrams: 04/20/18 05:15 04/20/18 05:15 - Problem List (1) Intractable vomiting with nausea SNOMED Code(s): 886389393 ICD Code: R11.2 - NAUSEA WITH VOMITING, UNSPECIFIED Status: Acute (2) Marijuana abuse SNOMED Code(s): 87588104 ICD Code: F12.10 - CANNABIS ABUSE, UNCOMPLICATED Status: Acute (3) Marijuana smoker, episodic SNOMED Code(s): 18754521 ICD Code: F12.90 - CANNABIS USE, UNSPECIFIED, UNCOMPLICATED Status: Acute (4) Hypokalemia SNOMED Code(s): 76048118 ICD Code: E87.6 - HYPOKALEMIA Status: Acute Problem List Initiated/Reviewed/Updated: Yes Orders Last 24hrs: Active Orders 24 hr Category Date Time Status Patient Status [ADT] Stat ADT 04/19/18 19:42 Active Intake and Output [RC] QSHIFT Care 04/20/18 07:51 Active Oxygen Therapy [RC] PRN Care 04/20/18 07:50 Active Telemetry Monitoring [Cardiac Monitoring] [RC] . Care 04/19/18 19:47 Active DIRECTED Telemetry Monitoring [Cardiac Monitoring] [RC] . Care 04/19/18 19:50 Active DIRECTED Up ad Harper [RC] ASDIRECTED Care 04/20/18 07:50 Active VTE/DVT Education [RC] PER UNIT ROUTINE Care 04/20/18 07:50 Active Vital Signs [RC] Q4H Care 04/20/18 07:50 Active Nothing per Oral Now Diet [DIET] Diet 04/20/18 Breakfast Active Abdomen Pelvis w Cont [CT] Stat Exams 04/19/18 17:31 Taken CULTURE URINE [RM] Stat Lab 04/19/18 18:50 Ordered DRUG SCREEN, URINE [URCHEM] Stat Lab 04/19/18 18:50 Ordered UA W/MICROSCOPIC [URIN] Stat Lab 04/19/18 18:50 Ordered Metoclopramide [Reglan] Med 04/19/18 21:46 Active 10 mg IVPUSH Q6H PRN Morphine Med 04/19/18 21:43 Active 2 mg IVPUSH Q2H PRN Ondansetron [Zofran] Med 04/19/18 21:46 Active 4 mg IVPUSH Q4H PRN Sodium Chloride 0.9% [Normal Saline] 1,000 ml Med 04/19/18 22:00 Active IV ASDIRECTED Sodium Chloride 0.9% [Saline Flush] Med 04/19/18 17:01 Active 10 ml FLUSH ASDIRECTED PRN Sodium Chloride 0.9% [Saline Flush] Med 04/19/18 17:01 Active 2.5 ml FLUSH ASDIRECTED PRN Saline Lock Insert [OM.PC] Stat Oth 04/19/18 17:00 Ordered Sequential Compression Device [OM.PC] Per Unit Routine Oth 04/20/18 07:51 Ordered Resuscitation Status Routine Resus Stat 04/20/18 07:50 Ordered Medication Orders Sodium Chloride (Normal Saline) 1,000 mls @ 150 mls/hr IV ASDIRECTED SHAWNA Last Admin: 04/20/18 03:24 Dose: 150 mls/hr Metoclopramide HCl (Reglan) 10 mg IVPUSH Q6H PRN PRN Reason: Nausea/Vomiting Morphine Sulfate (Morphine) 2 mg IVPUSH Q2H PRN PRN Reason: Pain Last Admin: 04/20/18 04:49 Dose: 2 mg Admin: 04/20/18 01:15 Dose: 2 mg Admin: 04/19/18 22:00 Dose: 2 mg Ondansetron HCl (Zofran) 4 mg IVPUSH Q4H PRN PRN Reason: Nausea/Vomiting Sodium Chloride (Saline Flush) 10 ml FLUSH ASDIRECTED PRN PRN Reason: Keep Vein Open Last Admin: 04/19/18 17:03 Dose: 10 ml Sodium Chloride (Saline Flush) 2.5 ml FLUSH ASDIRECTED PRN PRN Reason: Keep Vein Open Last Admin: 04/19/18 17:03 Dose: 2.5 ml Assessment and plan Intractable nausea and vomiting Hypokalyemia Dehydration Lethargy Abdominal pain Marijuana abuse Plan: Will admit patient to medical telemetry, will give patient antinausea medication such as: REGLAN IV,zofran iv, Iv fluids, with follow-up potassium level and also give patient 1 tablet of potassium chloride 40 mEq by mouth 1 time, also patient was started in Er on Iv fluids with 40 CALVIN KCl in 1 L of fluid .Will put patient nothing by mouth and will reevaluate patient in the morning Discharge summary Patient improved in the morning . His lethargy resolved. His potassium corrected to 4 in am and he tolerated clear liquid diet , his abdominal pain resolved and he was discharged home. Patient was advised to stop smoking marijuana.Patient was in hospital less than 24h.
--- NOTE | 2018-04-20 09:39 | CT ---
EXAM DATE: 04/19/18 PATIENT'S AGE: 22 Patient: BABS EWING Facility: [place], [place] Site . Site : 1995 Study: CT Abdomen w/ cont [id number]/17/2018 6:30:44 PM Ordering Physician: Doctor Medley Final Report: INDICATION: Unspecified abdominal pain x3 hours COMPARISON: None available. TECHNIQUE: Routine axial CT images of the abdomen and pelvis following the uneventful administration of IV contrast. Sagittal and coronal reformatted series were also generated and reviewed. Total exam DLP 507 mGy-cm. FINDINGS: The visualized portions of the lungs are clear. There is no pleural or pericardial effusion. The liver, gallbladder, pancreas and spleen are unremarkable. There is a benign-appearing cyst in the left kidney. Otherwise normal symmetric enhancement of the kidneys. There are punctate nonobstructing stones in both kidneys. No hydronephrosis. The major vascular structures demonstrate normal course and caliber. There is no suspicious abdominal or pelvic adenopathy. No bowel obstruction or ascites. The appendix appears normal. No focal inflammatory change or abscess. The bladder is partially distended, but otherwise unremarkable. Prostate seminal vesicles are normal. There are no acute or aggressive osseous findings. IMPRESSION: 1. No acute findings within the abdomen or pelvis. 2. Bilateral punctate nonobstructing nephroliths. Dictated by Seth Yang MD @ 04/19/2018 6:59:14 PM Dictated by: Seth Yang MD @ 04/19/2018 18:59:24 (Electronic Signature) Report Signed by Proxy. [facility]
== END 2018-04-20 11:42 | disposition home or self-care (01) ==
LOC: MW.ED 16:44 → MW.MS 19:42 → MW.OB 04-20 09:38 → MW.MS 04-20 09:41
PROVIDERS: ADMIT Internal Medicine; ATTEND Internal Medicine
DX: R11.2 Nausea with vomiting, unspecified (principal); E87.6 Hypokalemia; E86.0 Dehydration; R10.9 Unspecified abdominal pain; R53.83 Other fatigue; F12.10 Cannabis abuse, uncomplicated; Z87.891 Personal history of nicotine dependence
CPT/HCPCS: 36415; 74177; 80048; 80053; 80305; 81001; 82150; 82550; 85025; 86677; 87086; 93005; 96361; 96365; 96366; 96375; 96376; 99285; A9270; G0378; J0780; J1885; J2060; J2270; J2405; J2765; J3480; J7040; Q9967